=== PATIENT | male | born 1950 | race Caucasian/White ===

== ENCOUNTER 2024-10-24 10:50 | Outpatient (CLI) | payer OTHER ==
[2024-10-24 11:31] LABS: #Basophils 0.05 10x3/uL (0.0-0.2); #Eosinophils 0.04 10x3/uL (0.0-0.5); #Monocytes 0.48 10x3/uL (0.0-1.1); #Neutrophils 3.42 10x3/uL (1.5-8.4); %Basophils 0.9 % (0.0-2.0); %Eosinophils 0.7 % (0.0-6.0); %Lymphocytes 29.7 % (18.0-47.0); %Monocytes 8.4 % (0.0-10.0); %Neutrophils 60.1 % (40.0-75.0); Hematocrit 41.9 % (38.8-50.0); Hemoglobin 13.8 g/dL (13.5-17.5); Mean Corpuscular Hemoglobin 30.0 pg (27.0-33.0); Mean Corpuscular Volume 91.1 fL (81.2-95.1); Platelet Count 183 10x3/uL (150-450); Red Blood Cell (RBC) Count 4.60 10x6/uL (4.32-5.72); White Blood Cell (WBC) Count 5.69 10x3/uL (3.5-10.5)
[2024-10-24 11:52] LABS: Anion Gap 11 mmol/L (10-20); BUN (Urea Nitrogen) 10 mg/dL (8.4-25.7); Calc. Creatinine Clearance 0 mL/min (70-130); Calcium 9.5 mg/dL (7.8-10.44); Carbon Dioxide 30 mmol/L (23-31); Chloride 104 mmol/L (98-107); Glucose 94 mg/dL (83-110); Potassium 4.6 mmol/L (3.5-5.1); Sodium 140 mmol/L (136-145)
== END 2024-10-24 10:51 | disposition home or self-care (01) ==
LOC: CSHLAB 10:50
PROVIDERS: ATTEND Specialist
DX: Z01.818 Encounter for other preprocedural examination (principal); K40.90 Unilateral inguinal hernia, without obstruction or gangrene, not specified as recurrent
CPT/HCPCS: 71046; 80048; 85025